=== PATIENT | male | born 1975 | race Caucasian/White ===

== ENCOUNTER 2017-04-28 16:24 | Emergency (ER) | payer SELFPAY ==
[~2017-04-28] VITALS: Ht 177.8 cm; Wt 70.3 kg
[2017-04-28 16:39] VITALS: BP 113/72
--- NOTE | 2017-04-28 16:47 | PHYS DOC ---
Past Medical History Past Medical History: No Pertinent History Past Surgical History: No Surgical History Alcohol Use: None Drug Use: None Adult General Chief Complaint Chief Complaint: HAND PROBLEM HPI HPI Patient is a 41 year old male presents to the emergency department stating he was moving things today when he dropped something. He states he was upset and hit the wall with the right hand. Patient states he is right hand dominant. He has pain to the right 4th and 5th metacarpal area. He does have an abrasion noted to the 4th MIP. Patient is able to move all fingers with out difficulty. Patient states his last tetanus is approximately 8 months ago. Review of Systems Review of Systems Constitutional: Denies fever or chills [] Eyes: Denies change in visual acuity, redness, or eye pain [] HENT: Denies nasal congestion or sore throat [] Respiratory: Denies cough or shortness of breath [] Cardiovascular: No additional information not addressed in HPI [] GI: Denies abdominal pain, nausea, vomiting, bloody stools or diarrhea [] : Denies dysuria or hematuria [] Musculoskeletal: Denies back pain. C/o right hand pain Integument: Denies rash or skin lesions. C/o abrasion right hand Neurologic: Denies headache, focal weakness or sensory changes [] Endocrine: Denies polyuria or polydipsia [] All other systems were reviewed and found to be within normal limits, except as documented in this note. Allergies Allergies Allergies Coded Allergies Type Severity Reaction Last Updated Verified No Known Drug Allergies 04/28/17 No Physical Exam Physical Exam Constitutional: Well developed, well nourished, no acute distress, non-toxic appearance. [] HENT: Normocephalic, atraumatic, bilateral external ears normal, oropharynx moist, no oral exudates, nose normal. [] Eyes: PERRLA, EOMI, conjunctiva normal, no discharge. [] Neck: Normal range of motion, no tenderness, supple, no stridor. [] Cardiovascular:Heart rate regular rhythm Lungs & Thorax: no respiratory distress Skin: Warm, dry, no erythema, no rash. Abrasion noted to the right 4th MIP area. Extremities: Right 4th and 5th metacarpal tenderness, swelling noted, no cyanosis, no clubbing, ROM intact, no edema. Good sensation noted to the finger , full ROM noted cap refill brief less than 2 seconds. Neurologic: Alert and oriented X 3, normal motor function, normal sensory function, no focal deficits noted. [] Psychologic: Affect normal, judgement normal, mood normal. [] Current Patient Data Vital Signs Vital Signs Date Time Temp Pulse Resp B/P (MAP) Pulse Ox O2 Delivery O2 Flow Rate FiO2 04/28/17 16:39 98.8 76 16 97 Room Air 98.8 EKG EKG [] Radiology/Procedures Radiology/Procedures [] Course & Med Decision Making Course & Med Decision Making Pertinent Labs and Imaging studies reviewed. (See chart for details) X-ray of the right hand was positive for fracture at the 5th right MIP per Dr Beltre. Patient was provided x-ray result he will be placed in ulnar gutter splint with recommendations to followup with orthopedic in the next 5-7 days. Ice packs on 20 minutes and off 20 minutes several times a day. Elevation as much as possible. Patient was instruction to take Ibuprofen 800 mg every 8 hours with food. He will be provided with Elizabeth for severe pain. He was instructed this medication will cause drowsiness do not take if you need to be alert and oriented. Patient will be discharged home in stable condition. Signs and symptoms to return to the emergency department has been provide. I've spoken with the patient and/or caregivers. I've explained the patient's condition, diagnosis and treatment plan based on information available to me at this time. I've answered the patient's and/or caregivers questions and addressed any concerns. The patient and/or caregivers have a good understanding the patient's diagnosis, condition and treatment plan as can be expected at this point. Vital signs have been stabilized. The patient's condition is stable for discharge from the emergency department. The patient will pursue further outpatient evaluation with her primary care provider or other designated consulting physician as outlined in the discharge instructions. Patient and/or caregivers are agreeable to this plan of care and follow-up instructions have been explained in detail. The patient and/or caregivers have received these instructions in written format and expressed understanding of these discharge instructions. The patient and her caregivers are aware that if any significant change in condition or worsening of symptoms should prompt him to immediately return to this of the closest emergency department. If an emergent department is not readily available I would encourage him to call 911. [] Beth Disclaimer Dragon Disclaimer This electronic medical record was generated, in whole or in part, using a voice recognition dictation system. Departure Departure Impression: Primary Impression: Fracture of fifth metacarpal bone of right hand Disposition: HOME, SELF-CARE Condition: STABLE Referrals: NO PCP (PCP) SHABBIR BOB II, MD Patient Instructions: Hand Fracture, Metacarpals, [id number], RICE - Routine Care for Injuries, [id number], Splint Care, [id number] Additional Instructions: Activity as tolerated Ibuprofen for pain and discomfort 800 mg every 8 hours with food stop taking if you develop upset stomach Elizabeth for severe pain, this medication will cause drowsiness do not take if you need to be alert and oriented Keep the splint clean and dry Do not remove the splint. Ice packs on 20 minutes and off 20 minutes several times a day Elevation as much as possible Followup with orthopedic in 5-7 days Return to emergency department as needed for signs and symptoms that become worse Scripts Hydrocodone/Apap 5-325 (NORCO 5-325 TABLET) 1 Each Tablet 1 TAB PO PRN Q6HRS Y for PAIN, #15 TAB 0 Refills Prov: ADRI MARTINEZ APRN 04/28/17 Splinting Splinting : Location: right hand Hand-Made Type: orthoglass Splint: ulnar Pre-Proc Neuro Vasc Exam: normal Post-Proc Neuro Vasc Exam: normal Problem Qualifiers Primary Impression: Fracture of fifth metacarpal bone of right hand Encounter type: initial encounter Fracture type: closed Metacarpal location : unspecified portion of metacarpal Fracture alignment: nondisplaced Qualified Codes: S62.306A - Unspecified fracture of fifth metacarpal bone, right hand, initial encounter for closed fracture ADRI MARTINEZ APRN Apr 28, 2017 16:47
[2017-04-28] MEDS ORDERED: HYDR-971 PO (17:09)
--- NOTE | 2017-04-29 07:59 | RAD ---
EXAM: Right hand, 3 views. HISTORY: Pain. COMPARISON: 01/31/2006. FINDINGS: Frontal, lateral and oblique views of the right hand are obtained. There is a mildly displaced and angled fracture of the distal fifth metacarpal. No additional fracture is seen. IMPRESSION: Mildly displaced and angled fracture of the distal fifth metacarpal.
== END 2017-04-28 17:13 | disposition home or self-care (01) ==
LOC: ER 16:24
DX: S62.396A Other fracture of fifth metacarpal bone, right hand, initial encounter for closed fracture (principal); W22.8XXA Striking against or struck by other objects, initial encounter; Y93.89 Activity, other specified; Y92.89 Other specified places as the place of occurrence of the external cause; Y99.8 Other external cause status
CPT/HCPCS: 29125; 73130; 99284-25